=== PATIENT | female | born 1935 | race Asian ===

== ENCOUNTER 2017-01-17 07:05 | Inpatient (IN) | payer MEDICARE, MEDICAID ==
[2017-01-17] VITALS (50 sets, daily range): BP systolic 107–159; BP diastolic 53–95
[~2017-01-17] VITALS: Ht 165.1 cm; Wt 99.8 kg
[2017-01-17] MEDS ORDERED: HUMAN PROTHROMBIN COMPLX (PCC) 500 UNITS VIAL IV NR (10:00)
[2017-01-17 10:51] LABS: BASOPHILS % 0.4 % (0.0-2.0); EOSINOPHILS % 0.9 % (0.0-5.0); HEMATOCRIT. 40.7 % (36.0-48.0); HEMOGLOBIN. 13.7 g/dL (12.0-16.0); LYMPHOCYTES % 17.8 % (20.0-50.0); MEAN CORPUSCULAR HEMOGLOBIN 31.1 pg (28.0-32.0); MEAN CORPUSCULAR VOLUME 92.4 fL (81.0-99.0); MEAN PLATELET VOLUME 7.5 fl (7.4-10.4); MONOCYTES % 8.9 % (2.0-8.0); PLATELET 210 x1000/uL (130-400); RED BLOOD CELL COUNT 4.41 mill/uL (4.2-5.4); RED CELL DISTRIBUTION WIDTH 13.8 % (11.6-14.6)
[2017-01-17 11:13] LABS: CARBON DIOXIDE 27 mEq/L (21-32); CHLORIDE 106 mEq/L (98-107)
[2017-01-17 11:51] LABS: INR 1.2; PARTIAL THROMBOPLASTIN TIME 28.2 sec (23.4-31.0); PROTHROMBIN TIME 12.5 sec (9.4-11.6)
[2017-01-17] MEDS ORDERED: LIDOCAINE HCL 1% 20ML VIAL (Pyxis) INJ ONE (12:01)
[2017-01-17] MEDS ORDERED: NICARDIPINE 50 MG in SODIUM CHLORIDE 0.9% 230 ML IV PRN (13:00)
[2017-01-17] MEDS: DEXT 5%/LACTATED RINGERS 1,000 ML IV SCH (13:20)
[2017-01-17] MEDS: DEXAMETHASONE 4MG/ML 1ML VIAL IV SCH ×2 (13:55→18:00)
[2017-01-17] MEDS: PHENYTOIN SODIUM 100MG/2ML VIAL IV SCH ×2 (13:56→22:03)
[2017-01-17 14:47] LABS: BG BASE EXCESS 2.1 mmol/L (-2.0-2.0); BG CARBOXYHEMOGLOBIN 0.7 % (0.5-1.5); BG DEOXYHEMOGLOBIN 1.9 % (0.0-5.0); BG FRACTION INSPIRED OXYGEN 40; BG HCO3 ACT 26.5 mmol/L (22.0-26.0); BG METHEMOGLOBIN 0.3 % (0.0-1.5); BG OXYGEN SATURATION 98.1 % (92.0-98.5); BG OXYHEMOGLOBIN 97.1 % (94.0-97.0); BG PCO2 40.6 mmHg (35.0-45.0); BG PH 7.433 (7.350-7.450); BG PO2 112.1 mmHg (75.0-100.0); BG SAMPLE SITE RIGHT BRACHIAL; BG TIDAL VOLUME(mL) 500 mL; BG TOTAL HEMOGLOBIN 13.1 g/dL (12.0-18.0); BG VENT MODE VENT - A/C; BG VENT RATE 14 set
[2017-01-17] MEDS: NICARDIPINE 100 MG in SODIUM CHLORIDE 0.9% 60 ML IV PRN (15:04)
[2017-01-17] MEDS ORDERED: POTA10TA15 PO (16:57)
[2017-01-17] MEDS ORDERED: ATOR10TA69 PO (16:57)
[2017-01-17] MEDS ORDERED: IPRA4AER IH (16:57)
[2017-01-17] MEDS ORDERED: FURO-151 PO (16:57)
[2017-01-17] MEDS ORDERED: METO-396 PO (16:57)
[2017-01-17] MEDS ORDERED: RIVA20TA PO (16:57)
[2017-01-17] MEDS ORDERED: LOSA100T14 PO (16:57)
[2017-01-17 19:36] LABS: HEMATOCRIT. 40.3 % (36.0-48.0); HEMOGLOBIN. 13.5 g/dL (12.0-16.0); MEAN CORPUSCULAR HEMOGLOBIN 30.9 pg (28.0-32.0); MEAN CORPUSCULAR VOLUME 92.5 fL (81.0-99.0); MEAN PLATELET VOLUME 7.1 fl (7.4-10.4); PLATELET 187 x1000/uL (130-400); RED BLOOD CELL COUNT 4.35 mill/uL (4.2-5.4); RED CELL DISTRIBUTION WIDTH 13.8 % (11.6-14.6)
[2017-01-17 20:26] LABS: PLATELET ESTIMATE NORMAL
[2017-01-18] VITALS (93 sets, daily range): BP systolic 97–161; BP diastolic 52–97
[2017-01-18] MEDS: DEXAMETHASONE 4MG/ML 1ML VIAL IV SCH ×4 (00:36→17:07)
[2017-01-18] MEDS: ACETAMINOPHEN 650MG SUPP PR PRN ×2 (00:36→15:48)
[2017-01-18 05:38] LABS: CARBON DIOXIDE 30 mEq/L (21-32); CHLORIDE 109 mEq/L (98-107)
[2017-01-18] MEDS: PHENYTOIN SODIUM 100MG/2ML VIAL IV SCH ×3 (06:06→21:45)
[2017-01-18] MEDS: DEXT 5%/LACTATED RINGERS 1,000 ML IV SCH ×2 (06:06→14:17)
[2017-01-18 06:07] LABS: HEMATOCRIT. 42.4 % (36.0-48.0); MEAN CORPUSCULAR HEMOGLOBIN 30.5 pg (28.0-32.0); MEAN CORPUSCULAR VOLUME 92.3 fL (81.0-99.0); MEAN PLATELET VOLUME 7.2 fl (7.4-10.4); PLATELET 190 x1000/uL (130-400); RED BLOOD CELL COUNT 4.59 mill/uL (4.2-5.4); RED CELL DISTRIBUTION WIDTH 13.6 % (11.6-14.6)
[2017-01-18] MEDS: NICARDIPINE 100 MG in SODIUM CHLORIDE 0.9% 60 ML IV PRN ×2 (06:07→08:38)
[2017-01-18] MEDS: PANTOPRAZOLE SODIUM 40 MG/VIAL IV SCH (08:26)
[2017-01-18 08:59] LABS: PLATELET ESTIMATE NORMAL
[2017-01-18] MEDS ORDERED: POTASSIUM CHLORIDE INJ 40 MEQ in DEXT 5% WATER 250 ML IV NR (11:30)
[2017-01-19] VITALS (96 sets, daily range): BP systolic 114–155; BP diastolic 66–96
[2017-01-19] MEDS: DEXAMETHASONE 4MG/ML 1ML VIAL IV SCH ×5 (03:15→23:47)
[2017-01-19 05:35] LABS: CARBON DIOXIDE 29 mEq/L (21-32); CHLORIDE 113 mEq/L (98-107)
[2017-01-19 06:01] LABS: BASOPHILS % 0.1 % (0.0-2.0); HEMATOCRIT. 41.9 % (36.0-48.0); HEMOGLOBIN. 13.5 g/dL (12.0-16.0); LYMPHOCYTES % 3.9 % (20.0-50.0); MEAN CORPUSCULAR HEMOGLOBIN 30.4 pg (28.0-32.0); MEAN CORPUSCULAR VOLUME 94.2 fL (81.0-99.0); MEAN PLATELET VOLUME 7.6 fl (7.4-10.4); MONOCYTES % 5.4 % (2.0-8.0); NEUTROPHILS % 90.6 % (40.0-76.0); PLATELET 178 x1000/uL (130-400); RED BLOOD CELL COUNT 4.44 mill/uL (4.2-5.4)
[2017-01-19] MEDS: PHENYTOIN SODIUM 100MG/2ML VIAL IV SCH ×3 (06:40→21:44)
[2017-01-19] MEDS: DEXT 5%/LACTATED RINGERS 1,000 ML IV SCH (06:41)
[2017-01-19] MEDS: NICARDIPINE 100 MG in SODIUM CHLORIDE 0.9% 60 ML IV PRN (07:50)
[2017-01-19] MEDS: PANTOPRAZOLE SODIUM 40 MG/VIAL IV SCH (08:04)
[2017-01-19] MEDS: ACETAMINOPHEN 650MG SUPP PR PRN ×2 (12:01→20:10)
[2017-01-19] MEDS: DEXT 5%/0.45% NACL 1000ML 1,000 ML IV SCH (23:49)
[2017-01-20] VITALS (91 sets, daily range): BP systolic 108–155; BP diastolic 54–104
[2017-01-20] MEDS: ACETAMINOPHEN 650MG SUPP PR PRN ×3 (02:10→13:53)
[2017-01-20 05:13] LABS: HEMATOCRIT. 40.3 % (36.0-48.0); HEMOGLOBIN. 13.3 g/dL (12.0-16.0); MEAN CORPUSCULAR HEMOGLOBIN 31.2 pg (28.0-32.0); MEAN CORPUSCULAR VOLUME 94.3 fL (81.0-99.0); MEAN PLATELET VOLUME 7.5 fl (7.4-10.4); PLATELET 149 x1000/uL (130-400); RED BLOOD CELL COUNT 4.27 mill/uL (4.2-5.4); RED CELL DISTRIBUTION WIDTH 14.2 % (11.6-14.6)
[2017-01-20] MEDS: DEXAMETHASONE 4MG/ML 1ML VIAL IV SCH ×3 (05:45→18:51)
[2017-01-20] MEDS: PHENYTOIN SODIUM 100MG/2ML VIAL IV SCH ×3 (05:45→21:20)
[2017-01-20 06:03] LABS: CARBON DIOXIDE 31 mEq/L (21-32); CHLORIDE 117 mEq/L (98-107)
[2017-01-20 07:27] LABS: PLATELET ESTIMATE NORMAL
[2017-01-20] MEDS: PANTOPRAZOLE SODIUM 40 MG/VIAL IV SCH (08:21)
[2017-01-20] MEDS ORDERED: VANCOMYCIN 1500MG in DEXTROSE 5% WATER 250ML IV NR (15:30)
[2017-01-20] MEDS: PIPERACILLIN/TAZ 3.375G PREMIX 50 ML IV SCH ×2 (15:33→21:20)
[2017-01-20] MEDS: DEXT 5%/0.45% NACL 1000ML 1,000 ML IV SCH (15:33)
[2017-01-20] MEDS: DILTIAZEM HCL 125 MG in DEXT 5% WATER 100 ML IV PRN (16:19)
[2017-01-20] MEDS: DEXTROSE 5% WATER 1,000 ML IV SCH (16:36)
[2017-01-20] MEDS ORDERED: ACETAMINOPHEN 325MG TABLET NG PRN (23:45)
[2017-01-21] VITALS (88 sets, daily range): BP systolic 94–179; BP diastolic 55–108
[2017-01-21] MEDS: DEXAMETHASONE 4MG/ML 1ML VIAL IV SCH ×5 (00:09→23:05)
[2017-01-21] MEDS: DILTIAZEM HCL 125 MG in DEXT 5% WATER 100 ML IV PRN ×3 (01:13→18:18)
[2017-01-21] MEDS: PHENYTOIN SODIUM 100MG/2ML VIAL IV SCH ×3 (05:24→23:05)
[2017-01-21] MEDS: PIPERACILLIN/TAZ 3.375G PREMIX 50 ML IV SCH ×3 (05:25→23:05)
[2017-01-21] MEDS ORDERED: VANCOMYCIN 500 MG PREMIX 100 ML IV SCH (06:00)
[2017-01-21 06:07] LABS: HEMATOCRIT. 42.8 % (36.0-48.0); MEAN CORPUSCULAR HEMOGLOBIN 31.4 pg (28.0-32.0); MEAN CORPUSCULAR VOLUME 95.6 fL (81.0-99.0); MEAN PLATELET VOLUME 7.9 fl (7.4-10.4); PLATELET 136 x1000/uL (130-400); RED BLOOD CELL COUNT 4.48 mill/uL (4.2-5.4); RED CELL DISTRIBUTION WIDTH 14.5 % (11.6-14.6)
[2017-01-21 06:38] LABS: CARBON DIOXIDE 29 mEq/L (21-32); CHLORIDE 115 mEq/L (98-107)
[2017-01-21] MEDS: ACETAMINOPHEN 650MG/20.3ML UDC NG PRN ×2 (08:18→18:18)
[2017-01-21] MEDS: PANTOPRAZOLE SODIUM 40 MG/VIAL IV SCH (08:18)
[2017-01-21 08:29] LABS: T4 FREE 1.78 ng/dL (0.76-1.46)
[2017-01-21 12:17] LABS: PLATELET ESTIMATE NORMAL
[2017-01-21] MEDS: METOPROLOL TARTRATE 25MG TABLET PO SCH ×2 (12:27→21:00)
[2017-01-21] MEDS: DEXTROSE 5% WATER 1,000 ML IV SCH (12:30)
[2017-01-21] MEDS: VANCOMYCIN 750 MG PREMIX 150 ML IV SCH (18:19)
[2017-01-21] MEDS ORDERED: DIGOXIN 500MCG/2ML AMP IV NR (19:00)
[2017-01-22] VITALS (84 sets, daily range): BP systolic 80–159; BP diastolic 53–102
[2017-01-22] MEDS: ACETAMINOPHEN 650MG/20.3ML UDC NG PRN (00:33)
[2017-01-22] MEDS: PIPERACILLIN/TAZ 3.375G PREMIX 50 ML IV SCH ×3 (05:09→21:30)
[2017-01-22] MEDS: PHENYTOIN SODIUM 100MG/2ML VIAL IV SCH ×3 (05:09→21:30)
[2017-01-22] MEDS: DEXAMETHASONE 4MG/ML 1ML VIAL IV SCH ×3 (05:09→17:41)
[2017-01-22] MEDS: METOPROLOL TARTRATE 25MG TABLET PO SCH ×2 (08:16→21:31)
[2017-01-22] MEDS: DEXTROSE 5% WATER 1,000 ML IV SCH (08:24)
[2017-01-22] MEDS: PANTOPRAZOLE SODIUM 40 MG/VIAL IV SCH (08:28)
[2017-01-22] MEDS ORDERED: NOREPINEPHRINE 8 MG in DEXT 5% WATER 242 ML IV PRN (09:00)
[2017-01-22] MEDS: VANCOMYCIN 750 MG PREMIX 150 ML IV SCH (11:43)
[2017-01-23] VITALS (86 sets, daily range): BP systolic 68–137; BP diastolic 43–100
[2017-01-23] MEDS: DEXAMETHASONE 4MG/ML 1ML VIAL IV SCH ×5 (00:54→23:08)
[2017-01-23] MEDS: DEXTROSE 5% WATER 1,000 ML IV SCH (04:30)
[2017-01-23 05:41] LABS: HEMATOCRIT. 37.5 % (36.0-48.0); HEMOGLOBIN. 12.3 g/dL (12.0-16.0); MEAN CORPUSCULAR HEMOGLOBIN 30.8 pg (28.0-32.0); MEAN CORPUSCULAR VOLUME 94.2 fL (81.0-99.0); MEAN PLATELET VOLUME 8.1 fl (7.4-10.4); PLATELET 127 x1000/uL (130-400); RED BLOOD CELL COUNT 3.97 mill/uL (4.2-5.4); RED CELL DISTRIBUTION WIDTH 13.5 % (11.6-14.6)
[2017-01-23] MEDS: VANCOMYCIN 750 MG PREMIX 150 ML IV SCH ×2 (05:53→23:08)
[2017-01-23] MEDS: PHENYTOIN SODIUM 100MG/2ML VIAL IV SCH ×3 (05:53→22:38)
[2017-01-23] MEDS: PIPERACILLIN/TAZ 3.375G PREMIX 50 ML IV SCH ×3 (05:53→22:45)
[2017-01-23 06:03] LABS: CARBON DIOXIDE 30 mEq/L (21-32); CHLORIDE 106 mEq/L (98-107); PHOSPHORUS 2.3 mg/dL (2.5-4.9)
[2017-01-23] MEDS: METOPROLOL TARTRATE 25MG TABLET PO SCH ×2 (08:18→20:16)
[2017-01-23] MEDS: ACETAMINOPHEN 650MG/20.3ML UDC NG PRN ×2 (08:18→15:22)
[2017-01-23] MEDS: PANTOPRAZOLE SODIUM 40 MG/VIAL IV SCH (08:18)
[2017-01-23] MEDS ORDERED: PHENYLEPHRINE 20 MG in DEXT 5% WATER 248 ML IV PRN (12:00)
[2017-01-23] MEDS: PHENYLEPHRINE 80 MG in DEXT 5% WATER 492 ML IV PRN (15:41)
[2017-01-23 15:56] LABS: PLATELET ESTIMATE DECREASED
[2017-01-24] VITALS (96 sets, daily range): BP systolic 92–143; BP diastolic 50–105
[2017-01-24] MEDS: DEXTROSE 5% WATER 1,000 ML IV SCH (04:30)
[2017-01-24 05:46] LABS: HEMATOCRIT. 42.2 % (36.0-48.0); HEMOGLOBIN. 13.9 g/dL (12.0-16.0); MEAN CORPUSCULAR HEMOGLOBIN 31.3 pg (28.0-32.0); MEAN CORPUSCULAR VOLUME 95.4 fL (81.0-99.0); MEAN PLATELET VOLUME 8.5 fl (7.4-10.4); PLATELET 166 x1000/uL (130-400); RED BLOOD CELL COUNT 4.43 mill/uL (4.2-5.4); RED CELL DISTRIBUTION WIDTH 13.7 % (11.6-14.6)
[2017-01-24 06:31] LABS: PHOSPHORUS 3.3 mg/dL (2.5-4.9)
[2017-01-24] MEDS: DILTIAZEM HCL 125 MG in DEXT 5% WATER 100 ML IV PRN ×2 (06:38→15:47)
[2017-01-24] MEDS: DEXAMETHASONE 4MG/ML 1ML VIAL IV SCH ×4 (06:38→23:57)
[2017-01-24] MEDS: PHENYTOIN SODIUM 100MG/2ML VIAL IV SCH ×3 (06:38→22:00)
[2017-01-24] MEDS: PIPERACILLIN/TAZ 3.375G PREMIX 50 ML IV SCH ×3 (06:43→22:00)
[2017-01-24] MEDS: METOPROLOL TARTRATE 25MG TABLET PO SCH ×2 (08:52→19:52)
[2017-01-24] MEDS: DEXT 5%/0.45% NACL 1000ML 1,000 ML IV SCH (08:52)
[2017-01-24] MEDS: PANTOPRAZOLE SODIUM 40 MG/VIAL IV SCH (08:52)
[2017-01-24 10:23] LABS: NUCLEATED RED BLOOD CELLS 4 /100 WBC; PLATELET ESTIMATE NORMAL
[2017-01-24] MEDS: PHENYLEPHRINE 80 MG in DEXT 5% WATER 492 ML IV PRN (11:09)
[2017-01-24] MEDS: VANCOMYCIN 750 MG PREMIX 150 ML IV SCH ×2 (12:00→23:57)
[2017-01-24] MEDS ORDERED: VANCOMYCIN 1 G PREMIX 200 ML IV SCH (12:00)
[2017-01-25] VITALS (90 sets, daily range): BP systolic 90–139; BP diastolic 48–83
[2017-01-25] MEDS: DILTIAZEM HCL 125 MG in DEXT 5% WATER 100 ML IV PRN ×2 (01:15→16:40)
[2017-01-25] MEDS: PHENYLEPHRINE 80 MG in DEXT 5% WATER 492 ML IV PRN (01:15)
[2017-01-25 05:52] LABS: HEMATOCRIT. 36.7 % (36.0-48.0); HEMOGLOBIN. 12.1 g/dL (12.0-16.0); MEAN CORPUSCULAR HEMOGLOBIN 30.9 pg (28.0-32.0); MEAN CORPUSCULAR VOLUME 93.7 fL (81.0-99.0); MEAN PLATELET VOLUME 8.7 fl (7.4-10.4); PLATELET 158 x1000/uL (130-400); RED BLOOD CELL COUNT 3.91 mill/uL (4.2-5.4); RED CELL DISTRIBUTION WIDTH 13.5 % (11.6-14.6)
[2017-01-25] MEDS: DEXAMETHASONE 4MG/ML 1ML VIAL IV SCH ×3 (06:13→17:29)
[2017-01-25] MEDS: PHENYTOIN SODIUM 100MG/2ML VIAL IV SCH ×3 (06:14→22:40)
[2017-01-25] MEDS: PIPERACILLIN/TAZ 3.375G PREMIX 50 ML IV SCH ×3 (06:14→22:40)
[2017-01-25 06:50] LABS: CHLORIDE 101 mEq/L (98-107)
[2017-01-25 07:09] LABS: CARBON DIOXIDE 27 mEq/L (21-32)
[2017-01-25 07:25] LABS: PHOSPHORUS 2.3 mg/dL (2.5-4.9)
[2017-01-25] MEDS: PANTOPRAZOLE SODIUM 40 MG/VIAL IV SCH (08:17)
[2017-01-25] MEDS: METOPROLOL TARTRATE 25MG TABLET PO SCH ×2 (08:18→21:00)
[2017-01-25] MEDS: DEXT 5%/0.45% NACL 1000ML 1,000 ML IV SCH (08:18)
[2017-01-25] MEDS: VANCOMYCIN 750 MG PREMIX 150 ML IV SCH (12:32)
[2017-01-26] VITALS (88 sets, daily range): BP systolic 55–149; BP diastolic 24–98
[2017-01-26] MEDS: DEXAMETHASONE 4MG/ML 1ML VIAL IV SCH ×5 (00:09→23:41)
[2017-01-26] MEDS: VANCOMYCIN 750 MG PREMIX 150 ML IV SCH ×2 (00:09→13:38)
[2017-01-26 00:19] LABS: NUCLEATED RED BLOOD CELLS 2 /100 WBC; PLATELET ESTIMATE NORMAL
[2017-01-26] MEDS: DILTIAZEM HCL 125 MG in DEXT 5% WATER 100 ML IV PRN ×2 (03:08→21:39)
[2017-01-26] MEDS: PHENYTOIN SODIUM 100MG/2ML VIAL IV SCH ×3 (05:18→21:18)
[2017-01-26] MEDS: PIPERACILLIN/TAZ 3.375G PREMIX 50 ML IV SCH ×3 (05:18→21:19)
[2017-01-26 05:19] LABS: HEMATOCRIT. 39.9 % (36.0-48.0); HEMOGLOBIN. 13.1 g/dL (12.0-16.0); MEAN CORPUSCULAR HEMOGLOBIN 30.7 pg (28.0-32.0); MEAN CORPUSCULAR VOLUME 93.8 fL (81.0-99.0); MEAN PLATELET VOLUME 8.4 fl (7.4-10.4); PLATELET 177 x1000/uL (130-400); RED BLOOD CELL COUNT 4.26 mill/uL (4.2-5.4); RED CELL DISTRIBUTION WIDTH 13.8 % (11.6-14.6)
[2017-01-26 05:35] LABS: CARBON DIOXIDE 30 mEq/L (21-32); CHLORIDE 101 mEq/L (98-107)
[2017-01-26] MEDS: PHENYLEPHRINE 80 MG in DEXT 5% WATER 492 ML IV PRN (05:41)
[2017-01-26] MEDS: PANTOPRAZOLE SODIUM 40 MG/VIAL IV SCH (08:15)
[2017-01-26 08:35] LABS: NUCLEATED RED BLOOD CELLS 1 /100 WBC; PLATELET ESTIMATE NORMAL
[2017-01-26] MEDS: METOPROLOL TARTRATE 25MG TABLET PO SCH ×2 (08:53→21:00)
[2017-01-26] MEDS: DEXT 5%/0.45% NACL 1000ML 1,000 ML IV SCH (14:24)
[2017-01-27] MEDS ORDERED: MORPHINE SULFATE 100 MG in DEXT 5% WATER 90 ML IV PRN ×2
[2017-01-27 00:01] VITALS: BP 113/55
[2017-01-27 00:15] VITALS: BP 107/63
[2017-01-27 00:37] VITALS: BP 61/52
[2017-01-27 00:40] VITALS: BP 89/54
[2017-01-27 00:46] VITALS: BP 71/54
== END 2017-01-27 01:00 | disposition expired | DRG 207 ==
LOC: ER 07:05 → ENRESERV 09:28 → MICUSO 11:14
PROVIDERS: ADMIT Internal Medicine; ATTEND Internal Medicine
PROC: 5A1955Z Respiratory Ventilation, Greater than 96 Consecutive Hours (ICD-10-PCS; principal; 2017-01-17)
PROC: 0BH17EZ Insertion of Endotracheal Airway into Trachea, Via Natural or Artificial Opening (ICD-10-PCS; 2017-01-17)
PROC: 02HV33Z Insertion of Infusion Device into Superior Vena Cava, Percutaneous Approach (ICD-10-PCS; 2017-01-17)
PROC: B548ZZA Ultrasonography of Superior Vena Cava, Guidance (ICD-10-PCS; 2017-01-17)
DX: J96.00 Acute respiratory failure, unspecified whether with hypoxia or hypercapnia (principal); I61.5 Nontraumatic intracerebral hemorrhage, intraventricular; R65.21 Severe sepsis with septic shock; G93.6 Cerebral edema; A41.9 Sepsis, unspecified organism; G91.9 Hydrocephalus, unspecified; J18.9 Pneumonia, unspecified organism; G93.40 Encephalopathy, unspecified; I48.91 Unspecified atrial fibrillation; E87.0 Hyperosmolality and hypernatremia; I51.9 Heart disease, unspecified; Z66 Do not resuscitate; E66.01 Morbid (severe) obesity due to excess calories; I10 Essential (primary) hypertension; R40.2430 Glasgow coma scale score 3-8, unspecified time; Y95 Nosocomial condition; E05.90 Thyrotoxicosis, unspecified without thyrotoxic crisis or storm; E78.5 Hyperlipidemia, unspecified; Z79.01 Long term (current) use of anticoagulants; Z82.49 Family history of ischemic heart disease and other diseases of the circulatory system; Z79.899 Other long term (current) drug therapy; Z68.36 Body mass index [BMI] 36.0-36.9, adult; Z93.1 Gastrostomy status
CPT/HCPCS: 31500; 36415; 36569; 36600; 51702; 70450; 71010; 76937; 80048; 80053; 80185; 80202; 82375; 82805; 83735; 84100; 84145; 84439; 84443; 84481; 85025; 85610; 85730; 87040; 93005; 93306; 94002; 94003; 99291; C1725; C9113; C9132; J1100; J1160; J1165; J2270; J2370; J2543; J3370; J3480; J3490; J7030; J7050; J7060; J7070; J7121